=== PATIENT | male | born 2000 | race Caucasian/White ===

== ENCOUNTER 2022-08-25 21:50 | Inpatient (IN) | payer BC ==
[~2022-08-25] VITALS: Ht 180.3 cm; Wt 76.7 kg
[~2022-08-25 21:50] MED LIST: HYDR-3583 PO; LORA5SOL7 PO
--- NOTE | 2022-08-26 02:50 | Tele-ICU Progress Note ---
Subjective Date Seen by a Provider: Aug 26, 2022 Subjective/Events-last exam This virtual visit was conducted using real time audio/video. Thank you for asking us to see this patient for critical care needs. Recent events: Transferred from [place] where he presented with chest pain, now gone. Also ST elevation on EKG, elevated troponins. Plan to rule out myocarditis/pericarditis.Covid serology negative, vaccine status unknown. Room mate had pericarditis/myocarditis 6 months ago. PMH: None SH: smoking history negative, drug screen negative. FH: Non-contributory ROS: as in HPI. PE: Appears comfortable on camera. VSS. O2 sat 95% on RA. NSR. HEENT: No obvious masses, adenopathy or JVD. Chest: clear to auscultation. CV: RRR S1 S2 No murmur or added sounds. Abd: Non-tender. Bowel sounds Y. : Unremarkable. Gardner N. LINE UP EXAMINER/psychiatric: Grossly intact. No obvious focal findings. Extremities: No edema. Capillary refill < 3 seconds. Skin: unremarkable. Results: Elevated troponin 19.686. Available chart/ vitals / labs / images reviewed. Video assessment done using teleICU camera, rest of exam as per RN. A/P:. Critical Care: critically ill patient. Cont. IVF, ICU monitoring. Cardiology consult pending. Discussed with ELAINA Roberts. Asked RN to reach out to eICU if any questions or concerns later. Time spent with patient/coordination of care with other health professionals (mins): 15 Sepsis Event Evaluation Height, Weight, BMI Height: '" Weight: lbs. oz. kg; BMI Method: Exam Exam Patient acknowledged, consented, and participated in this virtual visit which was conducted using real time audio/video Vital Signs Date Time Temp Pulse Resp B/P (MAP) Pulse Ox O2 Delivery O2 Flow Rate FiO2 08/26/22 02:00 67 14 105/59 (72) 97 08/26/22 01:30 72 14 96 08/26/22 01:01 70 08/26/22 01:00 73 24 102/62 (81) 96 08/26/22 00:30 67 19 111/65 (77) 96 08/26/22 00:15 64 21 109/69 (79) 97 08/26/22 00:00 72 107/71 (80) 08/25/22 23:45 73 23 109/63 (76) 96 08/25/22 23:45 Room Air 08/25/22 23:30 36.4 72 20 121/68 (79) 97 Room Air Height & Weight Height: '" Weight: lbs. oz. kg; BMI Method: General Appearance: No Apparent Distress Respiratory: Lungs Clear Cardiovascular: Regular Rate, Rhythm, No Edema Peripheral Pulses: 1+ Dorsalis Pedis (R), 1+ Left Dors-Pedis (L) (See free text.), 1+ Radial Pulses (R) Assessment/Plan Assessment/Plan See free text. Critical Care: Critically Ill Patient MARLIN RODNEY MD Aug 26, 2022 02:50
[2022-08-26 06:47] LABS: HEMATOCRIT 36 % (40-54); HEMOGLOBIN 12.2 g/dL (13.3-17.7); MEAN CORPUSCULAR HEMOGLOBIN 30 pg (25-34); MEAN CORPUSCULAR HGB CONC 34 g/dL (32-36); MEAN CORPUSCULAR VOLUME 89 fL (80-99); MEAN PLATELET VOLUME 9.2 fL (9.0-12.2); PLATELET COUNT 185 10^3/uL (130-400); WHITE BLOOD COUNT 7.1 10^3/uL (4.3-11.0)
[2022-08-26 06:58] LABS: CREATININE SERUM 0.86 MG/DL (0.60-1.30); POTASSIUM 3.9 MMOL/L (3.6-5.0)
[2022-08-26 07:38] LABS: ERYTHROCYTE SEDIMENTATION RATE 17 MM/HR (0-15)
[2022-08-26] MEDS ORDERED: fentaNYL INJ 100 MCG/2 ML AMP ONE (07:42)
[2022-08-26] MEDS ORDERED: MIDAZOLAM 5 MG/5 ML (VERSED) VIAL ONE (07:42)
[2022-08-26] MEDS ORDERED: VERAPAMIL 5 MG/2 ML (CALAN) VIAL IV ONE (07:42)
[2022-08-26] MEDS ORDERED: NS IV 1000 ML 1,000 ML ONE (07:43)
[2022-08-26] MEDS ORDERED: HEParin 1000 UNIT/ML (10ML VIAL) FOR BOLUS ONE (07:43)
[2022-08-26] MEDS ORDERED: HEParin (CATH LAB) 2,000 ML IV ONE (07:43)
[2022-08-26] MEDS ORDERED: NS IV 1000 ML 0 ML ONE (07:43)
[2022-08-26] MEDS ORDERED: NITRO DRIP 25000 MCG/D5W 250 ML IV ONE (07:43)
[2022-08-26] MEDS ORDERED: LIDOCAINE 1% INJ 20 ML VIAL ONE (07:43)
--- NOTE | 2022-08-26 07:46 | Consultation-Cardiology ---
HPI-Cardiology Cardiology Consultation Date of Consultation 08/26/22 Date of Admission Time Seen by Provider: 07:43 Indication: Chest pain HPI 22-year-old gentleman with no significant past medical history, had sudden onset of chest pain yesterday morning severe across his chest associated with some shortness of breath lasted for about 10 to 15 minutes then relieved. Then he started to have waxing and waning chest pain. Patient suffered from influenza- like symptoms last week. He was having congestion and runny nose. He went to the emergency room yesterday night due to the recurrent chest pain. He was noted to have elevation in troponin. On my evaluation was feeling better, reported feeling occasional episodes of chest discomfort lasting for few minutes and resolving. Home Medications & Allergies Allergies: Coded Allergies: No Known Drug Allergies (Unverified , 06/21/10) Home Medication List Reviewed: Yes RFV-Rnaglb-Ftsaho Hx Patient Social History Marital Status: single Employed/Student: unemployed Have you traveled recently?: No Alcohol Use?: No Past Medical History Discussed below Family Medical History Significant Family History: No Pertinent Family Hx Review of Systems-General Review of Systems Constitutional: no symptoms reported, see HPI EENTM: see HPI, no symptoms reported Respiratory: see HPI, short of breath Cardiovascular: see HPI, chest pain; No edema, No Hx of Intervention, No palpitations, No syncope, No vascular heart diseas, No other Gastrointestinal: no symptoms reported, see HPI Genitourinary: no symptoms reported, see HPI Musculoskeletal: no symptoms reported, see HPI Skin: no symptoms reported, see HPI Psychiatric/Neurological: No Symptoms Reported, See HPI Reviewed Test Results Reviewed Test Results Lab Laboratory Tests Test 08/26/22 06:16 Range/Units White Blood Count 7.1 4.3-11.0 10^3/uL Red Blood Count 4.05 L 4.30-5.52 10^6/uL Hemoglobin 12.2 L 13.3-17.7 g/dL Hematocrit 36 L 40-54 % Mean Corpuscular Volume 89 80-99 fL Mean Corpuscular Hemoglobin 30 25-34 pg Mean Corpuscular Hemoglobin Concent 34 32-36 g/dL Red Cell Distribution Width 11.8 10.0-14.5 % Platelet Count 185 130-400 10^3/uL Mean Platelet Volume 9.2 9.0-12.2 fL Erythrocyte Sedimentation Rate 17 H 0-15 MM/HR Sodium Level 139 135-145 MMOL/L Potassium Level 3.9 3.6-5.0 MMOL/L Chloride Level 104 98-107 MMOL/L Carbon Dioxide Level 26 21-32 MMOL/L Anion Gap 9 5-14 MMOL/L Blood Urea Nitrogen 10 7-18 MG/DL Creatinine 0.86 0.60-1.30 MG/DL Estimat Glomerular Filtration Rate 125 BUN/Creatinine Ratio 12 Glucose Level 98 70-105 MG/DL Calcium Level 9.0 8.5-10.1 MG/DL Troponin I 28.055 *H <0.028 NG/ML Thyroid Stimulating Hormone (TSH) 1.59 0.35-4.94 UIU/ML Physical Exam Physical Exam Vital Signs Vital Signs - First Documented 08/25/22 23:30 Temp 36.4 Pulse 72 Resp 20 B/P (MAP) 121/68 (79) Pulse Ox 97 O2 Delivery Room Air Capillary Refill : Height, Weight, BMI Height: '" Weight: lbs. oz. kg; 23.93 BMI Method: General Appearance: No Apparent Distress Eyes: Bilateral Eye Normal Inspection, Bilateral Eye PERRL, Bilateral Eye EOMI HEENT: PERRL/EOMI, TMs Normal, Normal ENT Inspection, Pharynx Normal, Moist Mucous Membranes Neck: Full Range of Motion, Normal Inspection, Non Tender, Supple, Carotid Bruit Respiratory: Lungs Clear Cardiovascular: Regular Rate, Rhythm, No Edema, Friction Rub Gastrointestinal: Normal Bowel Sounds, No Organomegaly, No Pulsatile Mass, Non Tender, Soft Back: Normal Inspection, No CVA Tenderness, No Vertebral Tenderness Extremity: Normal Capillary Refill, Normal Inspection, Normal Range of Motion, Non Tender, No Calf Tenderness, No Pedal Edema Neurologic/Psychiatric: Alert, Oriented x3, No Motor/Sensory Deficits, Normal Mood/Affect Skin: Normal Color, Warm/Dry Lymphatic: No Adenopathy A/P-Cardiology Admission Diagnosis Chest pain Perimyocarditis First-degree AV block Assessment/Plan Chest pain, diffuse EKG abnormality. Elevation in troponin, I will proceed with cardiac catheterization Probably perimyocarditis, patient has friction rub. Continue to monitor troponin, evaluate 2D echo History of first-degree AV block. Status post recent upper respiratory tract infection, viral infection. LUZMARIA SHIN MD Aug 26, 2022 07:46
--- NOTE | 2022-08-26 07:46 | Cardiac Procedure Note-CS/ASA ---
Pre-Procedure Note Pre-Op Procedure Note Date of Available H&P: Aug 26, 2022 Date H&P Reviewed: Aug 26, 2022 Time H&P Reviewed: 07:46 History & Physical: H&P Reviewed, Patient Examed, No changes noted Conscious Sedation Pre-Proced Time 07:46 ASA Score 3 For ASA 3 and 4: Consider anesthesia and medical clearance. Also, for patients with a history of failed moderate sedation consider anesthesia. Airway Lungs Heart ASA score ASA 1: a normal healthy patient ASA 2: a patient with a mild systemic disease (mid diabetes, controlled hypertension, obesity ASA 3: a patient with a severe systemic disease that limits activity (angina, COPD, prior Myocardial infarction) ASA 4: a patient with an incapacitating disease that is a constant threat to life (CHF, renal failure) ASA 5: a moribund patient not expected to survive 24 hrs. (ruptured aneurysm) ASA 6: a declared brain- patient whose organs are being harvested. For emergent operations, add the letter E after the classification Mallampati Classification Grade 3 Sedation Plan Analgesia, Amnesia, Plan communicated to team members, Discussed options with patient/fam, Discussed risks with patient/fam The patient is an appropriate candidate to undergo the planned procedure, sedation, and anesthesia. The patient immediately re-assessed prior to indication. LUZMARIA SHIN MD Aug 26, 2022 07:46
[2022-08-26] MEDS ORDERED: NS IV 1000 ML 1,000 ML IV SCH (08:00)
--- NOTE | 2022-08-26 08:49 | Cardiac Cath Report ---
Cardiac Cath Report Physician (s)/Environmental Remediation Specialist (s) Physician LUZMARIA SHIN MD Pre-Procedure Diagnosis Pre-Procedure Diagnosis: NSTMI Post-Procedure Note Procedure Start Date: Aug 26, 2022 Name of Procedure: [facility] Findings/Procedure Note PROCEDURE NOTE: 22-year-old gentleman admitted with chest pain and elevated troponin, cardiac catheterization was advised. After explaining the procedure to the patient, all pros and cons were explained, all questions were answered. The patient signed the consent and then he was placed in the cardiac catheterization laboratory. Groin was prepped in SL fashion local anesthesia was used. Sheath placed in the right radial artery, Hawarden catheter was engaged in the right and left coronary system, up and advancing the Hawarden catheter to the left ventricular cavity patient had ventricular tachycardia. Sustained. Subsequently I removed it and used pigtail catheter placed in the left ventricular cavity and left ventriculogram was done. Pullback LV to aorta was done. At the end of the procedure the sheath was removed. Vascular band was used FINDINGS: Hemodynamics LV 103/20, end-diastolic pressure of 20 Aorta 100/73 mean of 66 ANATOMY: Left Main is free of obstructive disease Left Anterior Descending is free of obstructive disease Left Circumflex is free of obstructive disease Right Coronary Artery is free of obstructive disease LV Gram has diffuse left ventricular hypokinesia with ejection fraction 30% CONCLUSION: 1. Nonischemic cardiomyopathy with ejection fraction 30% 2. Normal coronary system DISCUSSION AND RECOMMENDATION: Starting LifeVest and maximize medical therapy Anesthesia Type: Conscious Sedation Estimated blood loss (mL): 10 ml Contrast Amount: 36 ml Total Radiation Dose: 114 mGy Post-Procedure Diagnosis Post-operative diagnosis: Chest pain Elevated troponin level Myocarditis Shortness of breath LUZMARIA SHIN MD Aug 26, 2022 08:49
[2022-08-26] MEDS ORDERED: SACUBITRIL/VALSARTAN 24/26 MG (ENTRESTO) TABLET PO SCH (09:00)
[2022-08-26] MEDS: NS IV 1000 ML 1,000 ML IV SCH ×2 (10:27→17:49)
--- NOTE | 2022-08-26 15:55 | History & Physical-Hospitalist ---
History of Present Illness HPI/Chief Complaint Vin Drummond is a 22 year old male who presented with chest pain. He lives in [place], [place]. He had a flu-like illness a week or two ago. Yesterday he began having chest pain which radiated to his back. The pain was relieved by bending forward. He denies radiation to his arms or neck. He did have some arm numbness. He denies diaphoresis. He denies nausea and vomiting. He was feeling short of breath. He felt anxious. His father picked him up and then took him to the [place] ER. He was found to have a significantly elevated troponin and was transferred to [facility]. Source: patient Exam Limitations: no limitations Date Seen 08/26/22 Time Seen by a Provider: 11:15 Attending Physician No,Local Physician PCP Admitting Physician: Adina Gaspar DO Attending Physician: Andreina Sanchez MD Referring Physician Date of Admission Aug 25, 2022 at 23:26 Home Medications & Allergies Home Medications Reviewed patient Home Medication Reconciliation performed by pharmacy medication reconciliations robotic maintenance technician and/or nursing. Patients Allergies have been reviewed. Allergies Allergies Coded Allergies No Known Drug Allergies (Wltbabtepm81/28/10) Past Lvnokye-Yyoaql-Yovsyn Hx Patient Social History Marrital Status: single Employed/Student: unemployed Tobacco Use?: No Use of E-Cig and/or Vaping dev: No Substance use?: No Alcohol Use?: No Pt feels they are or have been: No Current Status Advance Directives: No Communicates: Verbally Primary Language: Lithuanian Preferred Spoken Language: Lithuanian Is interpretation needed?: No Implanted or Applied Medical D: Contraceptive device Family Medical History No Pertinent Family Hx Review of Systems Constitutional: no symptoms reported EENTM: no symptoms reported Respiratory: short of breath Cardiovascular: chest pain Gastrointestinal: no symptoms reported Physical Exam Physical Exam Vital Signs Vital Signs - First Documented 08/25/22 23:30 Temp 36.4 Pulse 72 Resp 20 B/P (MAP) 121/68 (79) Pulse Ox 97 O2 Delivery Room Air Capillary Refill : Less Than 3 Seconds Height, Weight, BMI Height: '" Weight: lbs. oz. kg; 23.93 BMI Method: General Appearance: No Apparent Distress, WD/WN HEENT: PERRL/EOMI, Pharynx Normal Neck: Normal Inspection, Supple Respiratory: Lungs Clear, Normal Breath Sounds, No Respiratory Distress Cardiovascular: Regular Rate, Rhythm, No Edema, No Murmur Gastrointestinal: Normal Bowel Sounds, Non Tender, Soft Extremity: Normal Inspection, Non Tender, No Pedal Edema Neurologic/Psychiatric: Alert, Oriented x3, Normal Mood/Affect Skin: Normal Color, Warm/Dry Results Results/Procedures Labs Laboratory Tests 08/26/22 06:16 Patient resulted labs reviewed. Imaging: Reviewed Imaging Report Assessment/Plan Admission Diagnosis NSTEMI Admission Status: Inpatient Order (span 2 midnights) Reason for Inpatient Admission: Viral myocarditis Assessment and Plan Viral myocarditis NSTEMI Cardiology following Troponin significantly elevated Left heart cath with no evidence of CAD, EF 30% Echo with EF 50-55% Ibuprofen Metoprolol Diagnosis/Problems Diagnosis/Problems (1) Acute viral myocarditis Status: Acute (2) NSTEMI (non-ST elevation myocardial infarction) Status: Acute ANDREINA SANCHEZ MD Aug 26, 2022 15:55
[2022-08-26] MEDS: IBUPROFEN 600 MG (MOTRIN) TAB PO SCH ×2 (17:49→23:16)
[2022-08-27] MEDS: NS IV 1000 ML 1,000 ML IV SCH (04:45)
[2022-08-27] MEDS: IBUPROFEN 600 MG (MOTRIN) TAB PO SCH (05:41)
[2022-08-27] MEDS ORDERED: PANTOPRAZOLE 40 MG (PROTONIX) TAB PO SCH (09:00)
--- NOTE | 2022-08-27 09:17 | Tele-ICU Progress Note ---
Subjective Date Seen by a Provider: Aug 27, 2022 Time Seen by a Provider: 09:17 Subjective/Events-last exam (Tele-ICU Physician , Progress Note ) Service provided via interactive audio and video telecommunications E-CARE system to a patient admitted to ICU bed in [facility]. Patient is seen today due to persistent need of ICU care Available chart/ vitals / labs / Images reviewed Video assessment done using teleICU camera, rest of exam as per RN Discussed with RN Events overnight : Afebrile hemodynamically stable Respiratory - I/O = Drips: Pressors- no Consultants: Hospital course: A/P Viral myocarditis CM, presumed viral -EF 30% - as per cards --Left heart cath with no evidence of CAD 08/26/22 Hypotension - most likely card etiology + metoprolol - as per cards - will check mdg and bmp to blood in lab and follow closely Lines : periph , (Central Line Necessity Reviewed) Gardner: OG: Nutrition: Analgesia: Anxiety/ delirium VTE Prophylaxis: scd , ambu;late of ok with cards Stress Ulcer Prophylaxis: ppi Plans in collaboration with bedside consultants and IM MDs. Discussed with RN to reach out if any questions or concerns A total of _10 minutes of critical care time was devoted to this patient today, required to treat and/or prevent further deterioration of critical care condition ( as above ) . I am remotely monitoring this patient from another state. I am unable to do the bedside exam, and history/physical and pertinent information is taken from other notes in the computer and bedside staff. Sepsis Event Evaluation Height, Weight, BMI Height: '" Weight: lbs. oz. kg; 23.59 BMI Method: Exam Exam Patient acknowledged, consented, and participated in this virtual visit which was conducted using real time audio/video Vital Signs Date Time Temp Pulse Resp B/P (MAP) Pulse Ox O2 Delivery O2 Flow Rate FiO2 08/27/22 09:00 65 33 93/55 (67) 98 Room Air 08/27/22 08:00 66 102/58 (70) 98 Room Air 08/27/22 07:52 36.7 08/27/22 07:00 83 08/27/22 07:00 69 98/61 (74) 97 Room Air 08/27/22 06:00 70 107/62 (77) 98 Room Air 08/27/22 05:00 71 101/62 (75) 96 Room Air 08/27/22 04:00 97 Room Air 08/27/22 04:00 36.8 Room Air 08/27/22 04:00 74 107/63 (78) 95 Room Air 08/27/22 03:00 66 114/76 (89) 95 Room Air 08/27/22 02:00 67 112/65 (81) 98 Room Air 08/27/22 01:00 80 08/27/22 01:00 93 112/72 (85) 94 Room Air 08/27/22 00:00 93 19 126/93 (104) 100 Room Air 08/27/22 00:00 37.2 22 99 Room Air 08/26/22 23:30 99 Room Air 08/26/22 23:00 80 26 122/81 (95) 98 Room Air 08/26/22 22:00 76 25 117/74 (88) 97 Room Air 08/26/22 21:00 80 22 120/60 (80) 99 Room Air 08/26/22 20:00 92 17 113/73 (86) 98 Room Air 08/26/22 19:56 95 Room Air 08/26/22 19:42 36.6 08/26/22 19:00 74 08/26/22 19:00 73 18 101/64 (76) 97 Room Air 08/26/22 18:00 75 30 94/64 (74) 96 Room Air 08/26/22 17:00 77 30 94/57 (69) 95 Room Air 08/26/22 16:00 96 Room Air 08/26/22 16:00 75 25 106/64 (78) 95 Room Air 08/26/22 15:54 37.0 08/26/22 15:00 89 21 97/68 (78) 96 Room Air 08/26/22 14:00 80 21 95/60 (72) 96 Room Air 08/26/22 13:00 76 28 92/57 (69) 93 Room Air 08/26/22 12:59 73 08/26/22 12:00 86 33 83/56 (65) 96 Room Air 08/26/22 12:00 36.7 08/26/22 11:01 96 Room Air 08/26/22 11:00 80 17 101/68 (79) 98 Room Air 08/26/22 10:15 67 15 91/58 (69) 96 Room Air 08/26/22 10:00 68 17 92/62 (72) 94 Room Air 08/26/22 09:45 73 11 85/51 (62) 97 Room Air 08/26/22 09:30 75 29 91/59 (70) 97 Room Air l I & O 08/27/22 07:00 Intake Total 3490 ml Balance 3490 ml Height & Weight Height: '" Weight: lbs. oz. kg; 23.59 BMI Method: General Appearance: No Apparent Distress, WD/WN HEENT: PERRL/EOMI, Pharynx Normal Neck: Normal Inspection, Supple Respiratory: Lungs Clear, Normal Breath Sounds, No Respiratory Distress Cardiovascular: Regular Rate, Rhythm, No Edema, No Murmur Capillary Refill: Less Than 3 Seconds Peripheral Pulses: 1+ Dorsalis Pedis (R), 1+ Left Dors-Pedis (L) (See free text.), 1+ Radial Pulses (R) Extremity: Normal Inspection, Non Tender, No Pedal Edema Neurologic/Psychiatric: Alert, Oriented x3, Normal Mood/Affect Skin: Normal Color, Warm/Dry Lymphatic: No Adenopathy Results Lab Laboratory Tests 08/26/22 06:16 Assessment/Plan Assessment/Plan 1 CIARA PATLE MD Aug 27, 2022 09:17
[2022-08-27 09:29] LABS: CALCIUM 9.6 MG/DL (8.5-10.1); CREATININE SERUM 0.86 MG/DL (0.60-1.30); MAGNESIUM 2.4 MG/DL (1.6-2.4)
[2022-08-27] MEDS ORDERED: IBUP-844 PO (09:38)
[2022-08-27] MEDS ORDERED: MTP25TSR PO (09:38)
[2022-08-27] MEDS ORDERED: PANT40TA52 PO (09:38)
--- NOTE | 2022-08-27 09:40 | Cardiology Progress Note ---
Subjective Date Seen by Provider: Aug 27, 2022 Time Seen by Provider: 09:38 Subjective/Events-last exam Patient was seen and evaluated at bedside, has been doing well. No further episodes of chest pain Echo was reviewed at bedside, repeated echo with normal LV function no pericardial effusion Objective-Cardiology Exam Last Set of Vital Signs Vital Signs 08/27/22 08/27/22 07:52 09:00 Temp 36.7 Pulse 65 Resp 33 B/P (MAP) 93/55 (67) Pulse Ox 98 O2 Delivery Room Air I&O Intake and Output 08/27/22 00:00 Intake Total 2640 ml Balance 2640 ml Intake Oral 2640 ml # Voids 5 Daily Weight Change No General: Alert, Oriented X3, Cooperative HEENT: Atraumatic, PERRLA Neck: Supple, No JVD, No Thyromegaly Lungs: Clear to Auscultation, Normal Air Movement Heart: Regular Rate, Normal S1, Normal S2, No Murmurs Abdomen: Normal Bowel Sounds, Soft, No Tenderness, No Hepatosplenomegaly, No Masses Extremities: No Clubbing, No Cyanosis, No Edema, Normal Pulses, No Tenderness/Swelling Skin: No Rashes, No Breakdown, No Significant Lesion Neuro: Normal Gait, Normal Speech, Strength at 5/5 X4 Ext, Normal Tone, Sensation Intact Psych/Mental Status: Mental Status NL, Mood NL Results Lab Laboratory Tests 08/27/22 04:36 A/P-Cardiology Admission Diagnosis Chest pain Perimyocarditis First-degree AV block Assessment/Plan Acute perimyocarditis Troponin level is trending down, myoglobin is normal EKG is still showing pericarditis pattern Echocardiogram was normal, repeat 2D echo showed normal LV function with no pericardial effusion Had a long discussion with the family, discussed the treatment plan to continue on ibuprofen, low-dose beta-blockers and PPI for 4 weeks. Repeat troponin level next week Appointment with Dr. Simpson's office in 2 to 4 weeks Discussed in length with the family, all their questions and concerns were answered. Minimal coronary artery disease, cardiac catheterization done on August 26, 2022 showing no significant obstructive disease History of first-degree AV block. Status post recent upper respiratory tract infection, viral infection. Avoid exertion for the next 4 weeks. No exercise no heavy duty work. LUZMARIA SIMPSON MD Aug 27, 2022 09:40
--- NOTE | 2022-08-27 11:37 | Discharge Summary ---
Discharge Summary Hospital Course Problems/Dx: (1) Acute viral myocarditis Status: Acute (2) NSTEMI (non-ST elevation myocardial infarction) Status: Acute Hospital Course Date of Admission: Aug 25, 2022 at 23:26 Admission Diagnosis : NSTEMI, myocarditis Family Physician/Provider: Julio Malcolm Physician Date of Discharge: 08/27/22 Discharge Diagnosis: Acute viral myocarditis Hospital Course: Vin Drummond is a 22 year old male who presented to [facility] with chest pain and was transferred with NSTEMI and myocarditis. He had a recent flu-like illness. His troponin was >20 and his EKG had ST elevations. Cardiology was consulted and assisted with his care. He had a left heart cath with no evidence of CAD. There was concern for decreased EF. He then had an echo which showed EF 50-55%. He was started on Ibupforen for myocarditis. He was also given Protonix. He was started on a low-dose Metoprolol. He should follow up with Dr. Simpson in 2-4 weeks. His symptoms resolved prior to discharge. He was discharged home in stable condition. Labs and Pending Lab Test: Laboratory Tests 08/26/22 15:27: Total Creatine Kinase 355H, Myoglobin 28.0, Troponin I 19.321*H 08/27/22 04:36: Total Creatine Kinase 201H, Myoglobin 26.7, Troponin I 16.161*H, Sodium Level 139, Potassium Level 4.0, Chloride Level 103, Carbon Dioxide Level 24, Anion Gap 12, Blood Urea Nitrogen 11, Creatinine 0.86, Estimat Glomerular Filtration Rate 125, BUN/Creatinine Ratio 13, Glucose Level 107H, Calcium Level 9.6, Magnesium Level 2.4 Microbiology 08/26/22 MRSA Screen - Final, Complete MRSA not isolated Home Meds Active Pantoprazole Sodium 40 Mg Tablet.dr 40 Mg PO DAILY Ibu (Ibuprofen) 600 Mg Tablet 600 Mg PO Q6HR Metoprolol Succinate 25 Mg Tab.er.24h 25 Mg PO DAILY Assessment/Pt Instructions Take medications as prescribed. Follow up with Dr. Simpson in a few weeks. Return with worsening chest pain, shortness of breath, or if you feel like you are g etting worse. Discharge Planning: >30 minutes discharge planning Discharge Instructions Discharge Diet: No Restrictions Activity as Tolerated: Yes Consultations Cardiology Discharge Physical Examination Vital Signs Vital Signs Date Time Temp Pulse Resp B/P (MAP) Pulse Ox O2 Delivery O2 Flow Rate FiO2 08/27/22 10:00 72 29 99 Room Air 08/27/22 07:52 36.7 General Appearance: No Apparent Distress, WD/WN HEENT: PERRL/EOMI, Pharynx Normal Respiratory: Lungs Clear, Normal Breath Sounds, No Respiratory Distress Cardiovascular: Regular Rate, Rhythm, No Edema, No Murmur Gastrointestinal: Normal Bowel Sounds, Non Tender, Soft Extremity: Normal Inspection, No Pedal Edema Skin: Normal Color, Warm/Dry Neurologic/Psychiatric: Alert, Normal Mood/Affect Allergies: Coded Allergies: No Known Drug Allergies (Unverified , 06/21/10) Discharge Summary Date of Admission Aug 25, 2022 at 23:26 Date of Discharge Discharge Date: Aug 27, 2022 Discharge Time: 11:36 Admission Diagnosis NSTEMI Consults/Procedures Consulations Cardiology Procedures Left heart cath Discharge Diagnosis Acute viral myocarditis (1) Acute viral myocarditis Status: Acute (2) NSTEMI (non-ST elevation myocardial infarction) Status: Acute RYLAND SANCHEZ MD Aug 27, 2022 11:36
[2022-08-27 15:04] VITALS: BP 93/55
== END 2022-08-27 15:05 | disposition home or self-care (01) | DRG 287 ==
LOC: ICU 23:26 → OBSVTOIN 23:26
PROVIDERS: ADMIT Internal Medicine; ATTEND Internal Medicine
PROC: 4A023N7 Measurement of Cardiac Sampling and Pressure, Left Heart, Percutaneous Approach (ICD-10-PCS; principal; 2022-08-26)
PROC: B2111ZZ Fluoroscopy of Multiple Coronary Arteries using Low Osmolar Contrast (ICD-10-PCS; 2022-08-26)
PROC: B2151ZZ Fluoroscopy of Left Heart using Low Osmolar Contrast (ICD-10-PCS; 2022-08-26)
DX: I40.0 Infective myocarditis (principal); I44.0 Atrioventricular block, first degree; I25.10 Atherosclerotic heart disease of native coronary artery without angina pectoris; Z20.822 Contact with and (suspected) exposure to COVID-19; B33.24 Viral cardiomyopathy; I95.9 Hypotension, unspecified
CPT/HCPCS: 36415; 80048; 82550; 83735; 83874; 84443; 84484; 85027; 85652; 87081; 93005; 93306; 93308; 93458